=== PATIENT | female | born 1960 | race Caucasian/White ===

== ENCOUNTER 2017-11-03 20:27 | Emergency (ER) | payer OTHER ==
[~2017-11-03 20:27] MED LIST: AUGMENTIN 875 M1 TAB PO; IBUPROFEN600 M1 PO; LIOTHYRONINE SO5 MC1 PO; NAPROSYN500 M1 PO; SYNTHROID125 MCG PO
== END 2017-11-03 20:30 | disposition admitted as inpatient to this hospital (09) ==
LOC: ERH 20:27
DX: R06.02 Shortness of breath (principal)

== ENCOUNTER 2018-03-12 19:31 | Emergency (ER) | payer OTHER ==
[~2018-03-12] VITALS: Ht 154.9 cm; Wt 81.6 kg
[2018-03-12 19:39] VITALS: BP 117/74
== END 2018-03-12 20:20 | disposition admitted as inpatient to this hospital (09) ==
LOC: ERH 19:31
DX: R21 Rash and other nonspecific skin eruption (principal)